=== PATIENT | male | born 1955 | race Caucasian/White ===

== ENCOUNTER → 2020-04-05 15:07 | Outpatient (CLI) | payer OTHER, SELFPAY ==
--- NOTE | 2020-04-05 | DI.RAD.S_ITS ---
PROCEDURE: XR THORACIC SPINE 2V INDICATIONS: PAIN IN THORACIC SPINE TECHNIQUE: 3 views of the thoracic spine were acquired. COMPARISON: None. FINDINGS: Bones: No fracture. Partially visualized spinal fixation hardware and spinal electrodes. Multilevel degenerative endplate sclerosis and spurring. Diffuse facet arthropathy. Soft tissues: No paravertebral stripe thickening. IMPRESSION: No fracture. Scattered discogenic changes. Dictated by: Kenny Valles M.D. on 04/05/2020 at 15:55 Approved by: Kenny Valles M.D. on 04/05/2020 at 15:56
== END ==
PROVIDERS: Family Provider Family Medicine; PCP Family Medicine; Referring Provider Registered Nurse; Visit Provider Registered Nurse
DX: M54.6 Pain in thoracic spine (principal); M47.814 Spondylosis without myelopathy or radiculopathy, thoracic region
CPT/HCPCS: 72070

== ENCOUNTER 2020-07-29 14:39 | Emergency (ER) | payer OTHER, SELFPAY ==
[2020-07-29 14:50] VITALS: BP 142/64; PULSE 55; RESP 20; TEMP 36.6; O2SAT 96
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
[2020-07-29] MEDS: KETOROLAC 60 MG/2 ML VIAL 30 MG IM (16:49)
[2020-07-29 16:58] VITALS: BP 154/67; PULSE 54; RESP 16; O2SAT 94
== END 2020-07-29 16:59 | disposition home or self-care (01) ==
PROVIDERS: Emergency Provider Emergency Medicine; Family Provider Family Medicine; PCP Family Medicine
DX: S16.1XXA Strain of muscle, fascia and tendon at neck level, initial encounter (principal); V89.2XXA Person injured in unspecified motor-vehicle accident, traffic, initial encounter
CPT/HCPCS: 96372; 99281; 99283; J1885

== ENCOUNTER → 2022-07-20 11:41 | Outpatient (CLI) | payer OTHER, SELFPAY ==
[2022-07-20 12:46] LABS: Add Manual Diff / Slide Review NO; Basophils Absolute Auto 0 /uL (0-100); Basophils Percent Auto 0.7 % (0-2); Eosinophils Absolute Auto 300 /uL (0-450); Eosinophils Percent Auto 4.3 % (2-4); Hematocrit 44.4 % (41-53); Hemoglobin 14.8 g/dL (13.5-17.5); Lymphocytes Absolute Auto 1600 /uL (1100-4500); Lymphocytes Percent Auto 26.3 % (25-40); Mean Corpuscular HGB Conc 33.3 % (30-36); Mean Corpuscular Hemoglobin 31.8 PG (26-34); Mean Corpuscular Volume 95.7 fL (80-100); Monocytes Absolute Auto 500 /uL (0-900); Monocytes Percent Auto 8.3 % (3-14); Neutrophils Absolute Auto 3600 /uL (1500-7000); Neutrophils Percent Auto 60.4 % (50-75); Platelet Count 195 X10^3/uL (150-400); Red Blood Cell Count 4.65 X10^6/uL (4.5-5.9); Red Cell Distribution Width 13.9 % (11.6-14.8)
[2022-07-20 12:47] LABS: Estimated Glomerular Filt Rate > 60 mL/min (>60)
[2022-07-20 12:49] LABS: Alanine Aminotransferase 47 IU/L (<50); Alkaline Phosphatase 76 U/L (38-126); Aspartate Aminotransferase 41 IU/L (17-59); BUN Creatinine Ratio 12.6 (6-22); Bilirubin Total 0.6 mg/dL (0.2-1.3); Blood Urea Nitrogen 11 mg/dL (9-20); Carbon Dioxide 30 mmol/L (22-32); Chloride 98 mmol/L (98-107); Cholesterol 157 mg/dL (140-199); Estimated Glomerular Filt Rate > 60 mL/min (>60); Glucose 194 mg/dL (80-110); HDL Cholesterol 33 mg/dL (40-60); HEMOLYSIS < 15 (0-50); LDL Cholesterol Calculated 53 mg/dL (<100); Lipase 115 U/L (23-300); Potassium 3.8 mmol/L (3.4-5.1); Sodium 139 mmol/L (137-145); Triglycerides 357 mg/dL (35-150)
[2022-07-20 12:53] LABS: Hemoglobin A1C% w Est Avg Glu 10.7 % (4.0-6.0)
[2022-07-20 13:20] LABS: TSH w/ Reflex to FT4 1.74 uIU/mL (0.47-4.68)
[2022-07-20 13:22] LABS: Testosterone 305 ng/dL (71.8-623)
[2022-07-20 13:55] LABS: Folate > 20.0 ng/mL (2.76-20.0); Vitamin B12 623 pg/mL (239-931)
[2022-07-20 15:38] LABS: Creatinine Urine Random 169.3 mg/dL
[2022-07-20 15:42] LABS: Microalbumi Creatinin Ratio Ur 13.5 ug/mg CR (<30); Microalbumin Urine Random 2.3 mg/dL (0-1.6)
[2022-07-24 15:49] LABS: Albumin 4.1 g/dL (3.5-5.0); Albumin Globulin Ratio 1.1 (1.0-2.8); Globulin 3.9 g/dL (1.7-4.1)
== END ==
PROVIDERS: Radiology Diagnostic Radiology; Family Provider Family Medicine; PCP Family Medicine; Referring Provider Physician Assistant; Visit Provider Physician Assistant
DX: I10 Essential (primary) hypertension (principal); E11.65 Type 2 diabetes mellitus with hyperglycemia; R53.83 Other fatigue; R10.9 Unspecified abdominal pain; Z12.5 Encounter for screening for malignant neoplasm of prostate; R19.7 Diarrhea, unspecified
CPT/HCPCS: 36415; 80053; 80061; 82043; 82565; 82570; 82607; 82746; 83036; 83690; 84153; 84403; 84443; 85025

== ENCOUNTER → 2022-07-20 | Outpatient (CLI) | payer OTHER, SELFPAY ==
--- NOTE | 2022-07-20 | DI.CT.S_ITS ---
PROCEDURE: CT ABDOMEN PELVIS W CON INDICATIONS: Unspecified abdominal pain TECHNIQUE: After the administration of oral and IV contrast, axial sections were acquired from the lung bases to the pubic symphysis. Coronal and sagittal reformats were performed. For radiation dose reduction, the following was used: automated exposure control, adjustment of mA and/or kV according to patient size. COMPARISON: None. FINDINGS: Image quality: Excellent. Lung bases: Lingula and right lower lobe scars and atelectasis. Tiny hiatal hernia. Heart: No significant findings. ABDOMEN: Liver: Normal size. There is nodular contour of liver. Gallbladder: There are gallstones. No gallbladder wall thickening or pericholecystic fluid collection. Biliary ducts: Unremarkable. Pancreas: Unremarkable. Spleen: Unremarkable. There is a 1.9 cm splenule near the inferior aspect of spleen. Adrenal Glands: Unremarkable. Kidneys and Ureters: There is a large simple appearing cyst in the inferior pole of the left kidney measuring 6.2 x 6.2 x 5.9 cm. A 1.6 cm exophytic cyst is seen in the superior pole of the right kidney. No renal stones or hydronephrosis. Stomach and Bowel: There is gastric antral thickening. Small bowel loops and colon are normal in caliber. Diverticulosis. No CT findings to suggest acute diverticulitis. Mild thickening of descending and sigmoid colon is noted. Peritoneum: No abnormal intraperitoneal fluid. No free air. Ventral Wall: No hernia. Abdominal Nodes: No retroperitoneal or mesenteric adenopathy by size criteria. Vessels: Aorta and inferior vena cava are normal in size. PELVIS: Pelvic Organs: Prostate is enlarged. Bladder wall thickness is normal. Bladder: Unremarkable. Pelvic Nodes: Mildly enlarged inguinal lymph nodes are noted bilaterally, measuring 1.2 cm in short axis on the right, and 1.3 cm on the left. Miscellaneous: No inguinal hernias are seen. Bones: Of degenerative changes in lumbar spine. IMPRESSION: 1. Nodular contour of liver suggesting cirrhosis. Please correlate with liver function tests. 2. Cholelithiasis. No CT findings to suggest acute cholecystitis. 3. There is gastric antral thickening. The finding is nonspecific and may be secondary to gastritis, peptic ulcer disease or artifact from peristalsis. If clinically indicated, EGD may be helpful for further evaluation. 4. Diverticulosis. No acute diverticulitis. 5. Mild thickening of descending and sigmoid colon is present suggesting mild colitis. Etiologies may be infection, inflammatory bowel disease and chronic diverticular disease. Recommend clinical correlation. 6. Bilateral simple appearing renal cysts. 7. Enlarged prostate. 8. Mildly enlarged inguinal lymph nodes are noted bilaterally. This finding is nonspecific and. Recommend clinical correlation and follow up. Dictated by: Cassy Louise M.D. on 07/20/2022 at 13:37 Approved by: Cassy Louise M.D. on 07/20/2022 at 13:56
--- NOTE | 2022-07-20 | DI.ECHO.S_ITS ---
[facility]---------+ [facility] +---------+ : : [address] : : : : [id number] : : : : Phone: [phone]+ Echocardiogram Report + + :Name: ARACELI CABALLERO Study Date: 07/20/2022 Height: 72 in : :[facility] ReadingLocation: Weight: 280 lb : : Gender: Male BSA: 2.5 m2 : :: 1955 Age: 67 yrs BP: 178/92 mmHg: :Reason For Study: Essential hypertension : :Ordering Physician: HANG, : :TREVOR Ang Performed By: Judy Canales : :Referring: TREVOR MAURICIO : + + Interpretation Summary The left ventricle is normal in size. Left ventricular ejection fraction is estimated to be 50 +/- 5%. The right ventricle is mildly dilated. The right ventricular systolic function is normal. No significant valvular pathology seen. The ascending aorta is mildly enlarged. BP: 178/92 mmHg Procedure: A two-dimensional transthoracic echocardiogram with color flow and Doppler was performed. The patient was in sinus bradycardia with heart rates between 47-65 bpm during the exam. Left Ventricle: Left ventricular wall thickness is mildly increased. The left ventricle is normal in size. There is no thrombus. Left ventricular ejection fraction is estimated to be 50 +/- 5%. There are no obvious focal wall motion abnormalities noted but poor endocardial definition reduces the sensitivity for the detection of such. Diastolic parameters suggest a relaxation abnormality of the left ventricle, consistent with probable normal filling pressures. Right Ventricle: The right ventricle is mildly dilated. The right ventricular systolic function is normal. Atria: The left atrium is moderately dilated. The right atrium is mildly dilated. There is no Doppler evidence for an interatrial shunt. Mitral Valve: The mitral valve is normal in structure and function. There is trace mitral regurgitation. Aortic Valve: The aortic valve is normal in structure and function. The aortic valve is trileaflet. There is no aortic valve stenosis. No aortic regurgitation is present. Tricuspid Valve: The tricuspid valve is normal. There is mild tricuspid regurgitation. The right ventricular systolic pressure is estimated to be at least 24.5 mmHg based on an estimated right atrial pressure of 3 mm Hg. Pulmonic Valve: The pulmonic valve leaflets are thin and pliable; valve motion is normal. There is no pulmonic valvular regurgitation. Great Vessels: The ascending aorta is mildly enlarged. The IVC is of normal diameter and collapses greater than 50% with a sniff. This suggests a low right atrial pressure of 3 mm Hg. Pericardium/ Pleura There is no pericardial effusion. There is an anterior echo-free space consistent with a fat pad. There is no pleural effusion. MMode/2D Measurements & Calculations LVIDd: 5.5 cm LVOT diam: 2.4 cm LVIDs: 3.8 cm Ao root diam: 3.8 cm FS: 30.9 % asc Aorta Diam: 4.1 cm EPSS: 0.30 cm IVSd: 1.1 cm LVPWd: 1.2 cm LV pierre. diameter/BSA (cm/m^2): 2.2 LV sys. diameter/BSA (cm/m^2): 1.5 LA dimension: 5.2 cm RA long axis: 6.2 cm LA A2 area: 27.8 cm2 RA area: 21.1 cm2 LA A4 area: 30.8 cm2 RA vol: 60.6 ml LA length (vol): 6.3 cm RA : 24.7 ml/m2 LA vol: 115.2 ml LA vol index: 46.9 ml/m2 RVD1 (basal): 4.4 cm LVLs ap4: 7.6 cm LVLd ap2: 9.4 cm TAPSE_phl: 2.9 cm LVLs ap2: 7.6 cm Doppler Measurements & Calculations Ao V2 max: 146.0 cm/sec LVOT Max Gabriel: 126.0 cm/sec Ao V2 mean: 111.0 cm/sec LV V1 max P.4 mmHg Ao max P.0 mmHg LV V1 VTI: 31.6 cm Ao mean P.0 mmHg GISSEL(I,D): 3.8 cm2 Ao V2 VTI: 38.0 cm GISSEL(V,D): 3.9 cm2 sev ratio: 0.83 GISSEL indexed to BSA (cm^2/m^2): 1.5 MV E max gabriel: 87.5 cm/sec TR max gabriel: 232.0 cm/sec MV A max gabriel: 103.0 cm/sec TR max P.5 mmHg MV E/A: 0.85 PA V2 max: 112.0 cm/sec Med Peak E' Gabriel: 6.6 cm/sec PA V2 mean: 71.6 cm/sec E/E' med: 13.3 PA mean P.0 mmHg Lat Peak E' Gabriel: 10.0 cm/sec E/E' lat: 8.8 E/e' average: 11.0 MV dec time: 0.27 sec MVA(VTI): 3.8 cm2 MV V2 mean: 59.8 cm/sec SV(LVOT): 143.0 ml MV mean P.0 mmHg MV V2 VTI: 37.4 cm AV VR_phl: 0.86 GISSEL(VTI)/BSA_phl: 1.5 Reading Physician:04:24 PM
== END ==
LOC: CT 12:21
PROVIDERS: Family Provider Family Medicine; PCP Physician Assistant; Referring Provider Physician Assistant; Visit Provider Physician Assistant
DX: I07.1 Rheumatic tricuspid insufficiency (principal); I77.89 Other specified disorders of arteries and arterioles; N28.1 Cyst of kidney, acquired; K57.90 Diverticulosis of intestine, part unspecified, without perforation or abscess without bleeding; K80.20 Calculus of gallbladder without cholecystitis without obstruction; R59.0 Localized enlarged lymph nodes; Z12.5 Encounter for screening for malignant neoplasm of prostate; E11.65 Type 2 diabetes mellitus with hyperglycemia; N40.0 Benign prostatic hyperplasia without lower urinary tract symptoms; I10 Essential (primary) hypertension; R10.32 Left lower quadrant pain; R53.83 Other fatigue; R19.7 Diarrhea, unspecified
CPT/HCPCS: 36415; 74177; 80053; 80061; 82043; 82565; 82570; 82607; 82746; 83036; 83690; 84153; 84403; 84443; 85025; 93306; Q9967

== ENCOUNTER → 2022-09-07 12:45 | Outpatient (CLI) | payer OTHER, SELFPAY ==
--- NOTE | 2022-09-07 | DI.CT.S_ITS ---
PROCEDURE: CT CERVICAL SPINE WO CON INDICATIONS: CERVICAL PAIN TECHNIQUE: Noncontrast 3 mm thick sections acquired from the skull base to the T4 level. Sagittal and coronal reformats were then constructed. For radiation dose reduction, the following was used: automated exposure control, adjustment of mA and/or kV according to patient size. COMPARISON: None. FINDINGS: Image quality: Excellent. Bones: No fractures or dislocations. Visualized superior ribs are intact. Discs: C2-3: No significant disc bulge. The foramina and central canal are patent. C3-4: Disc space narrowing with endplate degenerative changes and disc osteophytes with uncovertebral hypertrophy cause moderate bilateral foraminal stenosis. The central canal is patent. C4-5: Disc space narrowing with endplate degenerative changes and disc osteophytes with uncovertebral hypertrophy cause moderate bilateral foraminal stenosis. The central canal is patent. C5-6: Disc space narrowing with endplate degenerative changes and disc osteophytes with uncovertebral hypertrophy cause moderate bilateral foraminal stenosis. The central canal has moderate stenosis. C6-7: Disc space narrowing with endplate degenerative changes and disc osteophytes with uncovertebral hypertrophy cause moderate bilateral foraminal stenosis. The central canal has severe stenosis. C7-T1: No significant disc bulge. The foramina and central canal are patent. Soft tissues: Prevertebral soft tissues are normal in thickness. No paravertebral hematomas. No apical pneumothoraces. IMPRESSION: 1. Multilevel degenerative disc disease causing foraminal stenosis as detailed above. 2. C5-6 moderate central canal stenosis. 3. C6-7 severe central canal stenosis. 4. No acute abnormality. Dictated by: Star Ahn M.D. on 09/07/2022 at 15:07 Approved by: Star Ahn M.D. on 09/07/2022 at 15:13
== END ==
PROVIDERS: Family Provider Family Medicine; PCP Physician Assistant; Referring Provider Physical Medicine & Rehabilitation; Visit Provider Physical Medicine & Rehabilitation
DX: M47.812 Spondylosis without myelopathy or radiculopathy, cervical region (principal); M48.02 Spinal stenosis, cervical region
CPT/HCPCS: 72125

== ENCOUNTER → 2023-01-29 13:57 | Outpatient (CLI) | payer OTHER, SELFPAY ==
--- NOTE | 2023-01-29 | DI.CT.S_ITS ---
PROCEDURE: CT HEAD/BRAIN WO CON INDICATIONS: Dizziness and giddiness TECHNIQUE: Noncontrast 4.5 mm thick angled axial sections acquired from the foramen magnum to the vertex, with coronal and sagittal reformats. For radiation dose reduction, the following was used: automated exposure control, adjustment of mA and/or kV according to patient size. COMPARISON: None. FINDINGS: Image quality: Excellent. CSF spaces: Basal cisterns are patent. No extra-axial fluid collections. Ventricles are normal in size and shape. Brain: No midline shift. No intracranial masses or hemorrhage. Otto-white matter interface is normal. Mild age-related volume loss. There is hypoattenuation within the periventricular deep white nonspecific representing ischemic change. Skull and face: Calvarium and visualized facial bones are intact, without suspicious lesions. Bilateral lens replacement. Sinuses: Visualized sinuses and mastoids are clear. IMPRESSION: No acute large territorial infarct, intracranial hemorrhage or mass effect. Dictated by: Erasmo Nuñez M.D. on 01/29/2023 at 15:18 Approved by: Erasmo Nuñez M.D. on 01/29/2023 at 15:20
== END ==
PROVIDERS: Family Provider Family Medicine; PCP Physician Assistant; Referring Provider Physician Assistant; Visit Provider Physician Assistant
DX: R42 Dizziness and giddiness (principal)
CPT/HCPCS: 70450